=== PATIENT | male | born 1980 | race Caucasian/White ===

== ENCOUNTER → 2019-01-13 | Outpatient (REF) | payer OTHER | LOC: M SFHCPLAZ 12:14 | PROVIDERS: ATTEND Internal Medicine Infectious Disease | DX: B18.2 Chronic viral hepatitis C (principal) ==

== ENCOUNTER → 2019-01-13 | Outpatient (CLI) | payer MEDICAID, OTHER ==
[2019-01-17 00:06] LABS: HEPATITIS C QUANTITATION 711190 IU/mL (.); HEPATITIS C VIRUS GENOTYPE 1a (.)
== END ==
LOC: M PLALAB 12:23
PROVIDERS: ATTEND Internal Medicine Infectious Disease
DX: B18.2 Chronic viral hepatitis C (principal)

== ENCOUNTER → 2019-02-17 | Outpatient (REF) | payer OTHER ==
[2019-02-17 15:47] LABS: ALBUMIN 4.1 GM/DL (3.2-5.2); ALT/SGPT 31 U/L (12-78); BILIRUBIN,DIRECT < 0.1 MG/DL (0.0-0.2); BILIRUBIN,TOTAL 0.2 MG/DL (0.2-1.0); TOTAL PROTEIN 7.4 GM/DL (6.4-8.2)
[2019-02-20 14:34] LABS: HEPATITIS C QUANTITATION HCV Not Detected IU/mL (.)
== END ==
LOC: M SFHCPLAZ 13:00
PROVIDERS: ATTEND Internal Medicine Infectious Disease
DX: B18.2 Chronic viral hepatitis C (principal)

== ENCOUNTER → 2020-12-30 | Outpatient (CLI) | payer BC ==
[2020-12-30 12:18] LABS: HEMATOCRIT 46.5 % (42.0-52.0); HEMOGLOBIN 15.3 g/dl (13.5-17.5); MEAN CORPUSCULAR HEMOGLOBIN 29.3 pg (27.0-33.0); MEAN CORPUSCULAR HGB CONC 32.9 g/dl (32.0-36.5); MEAN CORPUSCULAR VOLUME 89.1 fl (80.0-96.0); PLATELET COUNT, AUTOMATED 260 10^3/uL (150-450); RED BLOOD COUNT 5.22 10^6/uL (4.30-6.10); WHITE BLOOD COUNT 6.4 10^3/uL (4.0-10.0)
[2020-12-30 12:49] LABS: ALBUMIN 3.8 GM/DL (3.2-5.2); ALT/SGPT 29 U/L (12-78); BILIRUBIN,TOTAL 0.2 MG/DL (0.2-1.0); BLOOD UREA NITROGEN 15 MG/DL (7-18); CALCIUM LEVEL 9.2 MG/DL (8.5-10.1); CARBON DIOXIDE LEVEL 29 MEQ/L (21-32); CHLORIDE LEVEL 109 MEQ/L (98-107); CREATININE FOR GFR 0.99 MG/DL (0.70-1.30); GLOMERULAR FILTRATION RATE > 60.0 (>60); GLUCOSE, FASTING 89 MG/DL (70-100); POTASSIUM SERUM 4.4 MEQ/L (3.5-5.1); SODIUM LEVEL 141 MEQ/L (136-145); TOTAL PROTEIN 6.9 GM/DL (6.4-8.2)
[2020-12-30 13:09] LABS: HEPATITIS B SURFACE ANTIGEN NEGATIVE (NEGATIVE)
[2020-12-30 13:37] LABS: HIV 1&2 SCREEN CENTAUR NEGATIVE (NEGATIVE)
[2020-12-30 14:23] LABS: HEPATITIS C VIRUS ABY INDEX > 11.0 INDEX (<0.8)
[2020-12-30 15:17] LABS: GC DNA AMPLIFICATION NEGATIVE (NEGATIVE)
--- NOTE | 2020-12-30 16:59 | ECGEPIP ---
[facility] Test Date: 2020-12-30 Pat Name: MAURISIO ORDOÑEZ Department: Room: - Gender: Male Automation Analyst: KATI : 1980 Requested By: Rodolfo Garcia Order Number: [id number] Reading MD: Regan Card Measurements Intervals [place] Rate: 50 P: 50 ID: [id number] QRS: 20 QRSD: 82 T: 21 QT: 432 QTc: 393 Interpretive Statements Sinus bradycardia No significant change compared with 09/03/2018. Electronically Signed on 12-30-2020 16:59:16 EST by Regan Card
== END ==
LOC: M LAB 11:32
PROVIDERS: ATTEND Family Medicine
DX: F11.20 Opioid dependence, uncomplicated (principal)

== ENCOUNTER → 2022-08-24 | Outpatient (CLI) | payer BC ==
[2022-08-24 09:53] LABS: HEMATOCRIT 45.7 % (42.0-52.0); HEMOGLOBIN 15.5 g/dl (13.5-17.5); MEAN CORPUSCULAR HEMOGLOBIN 30.2 pg (27.0-33.0); MEAN CORPUSCULAR HGB CONC 33.9 g/dl (32.0-36.5); MEAN CORPUSCULAR VOLUME 89.1 fl (80.0-96.0); PLATELET COUNT, AUTOMATED 255 10^3/uL (150-450); RED BLOOD COUNT 5.13 10^6/uL (4.30-6.10)
[2022-08-24 10:29] LABS: ALKALINE PHOSPHATASE 64 U/L (46-116); ALT/SGPT 22 U/L (7.0-40); AST/SGOT 9 U/L (<34); BILIRUBIN,TOTAL 0.2 MG/DL (0.3-1.2); BLOOD UREA NITROGEN 20 MG/DL (9-23); CALCIUM LEVEL 9.4 MG/DL (8.5-10.1); CARBON DIOXIDE LEVEL 27 MMOL/L (20-31); CHLORIDE LEVEL 105 MMOL/L (98-107); CREATININE FOR GFR 0.98 MG/DL (0.70-1.30); GLOMERULAR FILTRATION RATE > 60.0 (>60); GLUCOSE, FASTING 92 MG/DL (60-100); POTASSIUM SERUM 4.5 MMOL/L (3.5-5.1); SODIUM LEVEL 138 MMOL/L (136-145); TOTAL PROTEIN 6.7 G/DL (5.7-8.2)
[2022-08-24 11:56] LABS: GC DNA AMPLIFICATION NEGATIVE (NEGATIVE)
[2022-08-24 12:37] LABS: HEPATITIS B SURFACE ANTIGEN NEGATIVE (NEGATIVE); HIV 1&2 SCREEN NEGATIVE (NEGATIVE)
[2022-08-24 13:11] LABS: HEPATITIS C VIRUS ABY INDEX > 11.00 INDEX (<0.8)
== END ==
LOC: M LAB 09:07
PROVIDERS: ATTEND Family Medicine
DX: F11.20 Opioid dependence, uncomplicated (principal)

== ENCOUNTER → 2023-08-23 | Outpatient (CLI) | payer BC ==
[2023-08-23 09:52] LABS: HEMOGLOBIN 16.6 g/dl (13.5-17.5); MEAN CORPUSCULAR HEMOGLOBIN 30.5 pg (27.0-33.0); MEAN CORPUSCULAR HGB CONC 33.9 g/dl (32.0-36.5); MEAN CORPUSCULAR VOLUME 90.1 fl (80.0-96.0); PLATELET COUNT, AUTOMATED 274 10^3/uL (150-450); RED BLOOD COUNT 5.44 10^6/uL (4.30-6.10); WHITE BLOOD COUNT 7.4 10^3/uL (4.0-10.0)
[2023-08-23 10:25] LABS: ALBUMIN 4.1 G/DL (3.2-5.2); ALKALINE PHOSPHATASE 72 U/L (46-116); ALT/SGPT 23 U/L (7.0-40); AST/SGOT 13 U/L (<34); BILIRUBIN,TOTAL 0.2 MG/DL (0.3-1.2); BLOOD UREA NITROGEN 19 MG/DL (9-23); CARBON DIOXIDE LEVEL 27 MMOL/L (20-31); CHLORIDE LEVEL 106 MMOL/L (98-107); CREATININE FOR GFR 0.94 MG/DL (0.70-1.30); GLOMERULAR FILTRATION RATE > 60.0 (>60); GLUCOSE, FASTING 83 MG/DL (60-100); POTASSIUM SERUM 4.5 MMOL/L (3.5-5.1); SODIUM LEVEL 138 MMOL/L (136-145); TOTAL PROTEIN 6.7 G/DL (5.7-8.2)
[2023-08-23 10:45] LABS: HEPATITIS B SURFACE ANTIGEN NEGATIVE (NEGATIVE)
[2023-08-23 10:57] LABS: HIV 1&2 SCREEN NEGATIVE (NEGATIVE)
[2023-08-23 11:39] LABS: GC DNA AMPLIFICATION NEGATIVE (NEGATIVE)
[2023-08-23 11:48] LABS: HEPATITIS C VIRUS ABY INDEX > 11.00 INDEX (<0.8)
[2023-08-26 11:17] LABS: HCV RNA QUANTITATION <15 NOT DETECTED IU/mL (NOT DETECTED); HCV RNA log10 <1.18 NOT DETECTED Log IU/mL (NOT DETECTED)
== END ==
LOC: M LAB 08:18
PROVIDERS: ATTEND Family Medicine
DX: F11.20 Opioid dependence, uncomplicated (principal)